=== PATIENT | female | born 1985 | race Caucasian/White ===

== ENCOUNTER 2019-01-20 15:56 | Inpatient (IN) | payer BC, MEDICAID ==
[~2019-01-20] VITALS: Ht 177.8 cm; Wt 56.8 kg
[2019-01-20] MEDS ORDERED: MIRT15 PO (16:48)
[2019-01-20] MEDS ORDERED: LITH300C3 PO (16:48)
[2019-01-20] MEDS ORDERED: HALOPERIDOL 5 MG TABLET PO PRN (17:45)
[2019-01-20] MEDS ORDERED: INFLUENZA VIRUS VACCINE QVS 2019-20 (3YR+)/PF 60 MCG/0.5 ML SYRINGE IM ONE (17:45)
[2019-01-20] MEDS ORDERED: ZOLPIDEM TARTRATE 10 MG TABLET PO PRN (17:45)
[2019-01-20 20:43] VITALS: BP 106/78
[2019-01-20] MEDS: LORazepam 2 MG TABLET PO PRN (21:12)
[2019-01-21 03:04] VITALS: BP 90/63
[2019-01-21] MEDS ORDERED: BISACODYL 5 MG EC TABLET PO PRN (05:00)
[2019-01-21 08:35] VITALS: BP 130/79
[2019-01-21 08:49] LABS: BASOPHILS % (AUTO) 1.2 % (0.0-2.0); EOSINOPHILS % (AUTO) 3.8 % (1.0-6.0); HEMOGLOBIN 12.5 g/dL (12.0-16.0); LYMPHOCYTES # (AUTO) 1.8 K/uL (1.0-4.8); LYMPHOCYTES % (AUTO) 39.6 % (22.0-44.0); MEAN CORPUSCULAR HEMOGLOBIN 30.8 pg (26.0-34.0); MEAN CORPUSCULAR HGB CONC 32.9 G/dL (31.0-37.0); MEAN CORPUSCULAR VOLUME 94 fL (80-100); MONOCYTES # (AUTO) 0.5 K/uL (0.1-1.0); MONOCYTES % (AUTO) 11.7 % (2.0-9.0); NEUTROPHILS # (AUTO) 1.9 K/uL (1.8-7.7); NEUTROPHILS % (AUTO) 43.7 % (40.0-70.0); PLATELET COUNT (AUTO) 249 K/uL (150-450); RED BLOOD CELL COUNT(AUTO) 4.06 MIL/uL (4.00-5.20); RED CELL DISTRIBUTION WIDTH 13.5 % (11.5-14.5)
[2019-01-21 09:09] LABS: HEMOGLOBIN A1C 4.9 % (4.5-6.2)
[2019-01-21 09:20] LABS: ALANINE AMINOTRANSFERASE 11 U/L (12-78); ALBUMIN 3.3 g/dL (3.4-5.0); ALKALINE PHOSPHATASE 48 U/L (46-116); ANION GAP 7 mmol/L (8-16); ASPARTATE AMINOTRANSFERASE 14 U/L (15-37); BILIRUBIN,TOTAL 0.4 mg/dL (0.1-1.0); CALCIUM, TOTAL 8.6 mg/dL (8.8-10.5); CARBON DIOXIDE 27 mmol/L (22-29); CHLORIDE 109 mmol/L (98-107); CHOL/HDL RATIO 2.2 (3.9-5.7); CHOLESTEROL 119 mg/dL (131-200); CREATININE 0.61 mg/dL (0.60-1.30); FREE T4 (FREE THYROXINE) 1.03 ng/dL (0.76-1.46); GLOMERULAR FILTR. RATE CALC > 60 mL/min (>60); GLUCOSE,RANDOM 57 mg/dL (70-110); HCG,QUANTITATIVE < 1 mIU/mL (0-6); HDL CHOLESTEROL 55 mg/dL (40-60); LDL CHOL (CALC.) 56 mg/dL (0-130); POTASSIUM 3.9 mmol/L (3.5-5.1); SODIUM SERUM 143 mmol/L (136-145); THYROID STIMULATING HORMONE 1.25 uIU/mL (0.36-3.74); TOTAL PROTEIN, SERUM 5.9 g/dL (6.4-8.2); TRIGLYCERIDES 38 mg/dL (15-150); UREA NITROGEN, BLOOD 12 mg/dL (7-18)
[2019-01-21] MEDS: LITHIUM CARBONATE 300 MG CAPSULE PO SCH ×2 (12:09→16:18)
[2019-01-21 19:15] VITALS: BP 106/66
[2019-01-22 00:33] VITALS: BP 104/63
[2019-01-22 08:28] VITALS: BP 100/66
[2019-01-22] MEDS: LITHIUM CARBONATE 300 MG CAPSULE PO SCH ×3 (09:22→16:33)
[2019-01-22 10:41] LABS: GLUCOMETER DEV NAME(LOC) BV2X.; GLUCOSE,POINT OF CARE 73 MG/DL (70-110)
[2019-01-22 16:17] VITALS: BP 117/72
[2019-01-22] MEDS: LORazepam 2 MG TABLET PO PRN (20:15)
[2019-01-23 01:01] VITALS: BP 104/65
[2019-01-23 07:53] LABS: BASOPHILS % (AUTO) 0.8 % (0.0-2.0); EOSINOPHILS % (AUTO) 4.2 % (1.0-6.0); HEMATOCRIT 36.9 % (36-46); HEMOGLOBIN 12.3 g/dL (12.0-16.0); LYMPHOCYTES # (AUTO) 1.6 K/uL (1.0-4.8); LYMPHOCYTES % (AUTO) 25.9 % (22.0-44.0); MEAN CORPUSCULAR HEMOGLOBIN 31.3 pg (26.0-34.0); MEAN CORPUSCULAR HGB CONC 33.3 G/dL (31.0-37.0); MEAN CORPUSCULAR VOLUME 94 fL (80-100); MONOCYTES # (AUTO) 0.5 K/uL (0.1-1.0); MONOCYTES % (AUTO) 7.7 % (2.0-9.0); NEUTROPHILS # (AUTO) 3.7 K/uL (1.8-7.7); NEUTROPHILS % (AUTO) 61.4 % (40.0-70.0); PLATELET COUNT (AUTO) 219 K/uL (150-450); RED BLOOD CELL COUNT(AUTO) 3.94 MIL/uL (4.00-5.20); RED CELL DISTRIBUTION WIDTH 13.1 % (11.5-14.5)
[2019-01-23 08:11] LABS: ALANINE AMINOTRANSFERASE 12 U/L (12-78); ALBUMIN 3.1 g/dL (3.4-5.0); ALKALINE PHOSPHATASE 45 U/L (46-116); ANION GAP 4 mmol/L (8-16); ASPARTATE AMINOTRANSFERASE 10 U/L (15-37); BILIRUBIN,TOTAL 0.3 mg/dL (0.1-1.0); CALCIUM, TOTAL 8.2 mg/dL (8.8-10.5); CARBON DIOXIDE 28 mmol/L (22-29); CHLORIDE 106 mmol/L (98-107); CREATININE 0.61 mg/dL (0.60-1.30); GLOMERULAR FILTR. RATE CALC > 60 mL/min (>60); GLUCOSE,RANDOM 97 mg/dL (70-110); POTASSIUM 3.9 mmol/L (3.5-5.1); SODIUM SERUM 138 mmol/L (136-145); TOTAL PROTEIN, SERUM 5.9 g/dL (6.4-8.2)
[2019-01-23 08:29] LABS: UREA NITROGEN, BLOOD 10 mg/dL (7-18)
[2019-01-23] MEDS: LITHIUM CARBONATE 300 MG CAPSULE PO SCH ×2 (08:29→16:34)
[2019-01-23 08:42] VITALS: BP 102/55
[2019-01-23 16:22] VITALS: BP 107/62
[2019-01-23] MEDS: LORazepam 2 MG TABLET PO PRN (17:38)
[2019-01-23] MEDS ORDERED: LITHIUM CARBONATE 600 MG CAPSULE PO SCH (21:00)
[2019-01-24 00:14] VITALS: BP 104/64
[2019-01-24] MEDS: LITHIUM CARBONATE 300 MG CAPSULE PO SCH (08:23)
[2019-01-24 08:29] VITALS: BP 107/69
[2019-01-24] MEDS ORDERED: LITH300C3 PO ×2 (10:40)
== END 2019-01-24 13:59 | disposition home or self-care (01) | DRG 885 ==
LOC: B2X 18:03
PROVIDERS: ADMIT Psychiatry & Neurology Psychiatry; ATTEND Psychiatry & Neurology Psychiatry
DX: F31.2 Bipolar disorder, current episode manic severe with psychotic features (principal); Z28.21 Immunization not carried out because of patient refusal; F41.9 Anxiety disorder, unspecified; K59.00 Constipation, unspecified; Z91.5 Personal history of self-harm; Z88.8 Allergy status to other drugs, medicaments and biological substances; F12.90 Cannabis use, unspecified, uncomplicated
CPT/HCPCS: 83036; 84439; 84443; 87081; 90686